=== PATIENT | female | born 1970 | race Hispanic/Latino ===

== ENCOUNTER 2017-03-21 08:18 | Outpatient (CLI) | payer OTHER | END 2017-03-21 08:19 | disposition home or self-care (01) | LOC: BICULT 08:18 | PROVIDERS: ATTEND Family Medicine | DX: N28.1 Cyst of kidney, acquired (principal) | CPT/HCPCS: 76770 ==

== ENCOUNTER 2018-05-29 11:58 | Outpatient (CLI) | payer OTHER ==
--- NOTE | 2018-05-29 13:10 | ULT ---
RENAL ULTRASOUND: HISTORY: Renal cyst. COMPARISON: A 03/21/2017 exam. FINDINGS: Real-time imaging of the right and left kidneys was performed. The right kidney measures 11.7 and th e left kidney 11.3 cm in size. There is a 1.6 x 2 cm upper pole right renal cyst. There is a slight ly smaller 1.6 cm mid pole left renal cyst. Some of these films have been inadvertently labeled as r ight, but I discussed with the technologist and label left will be changed. No obstruction. The chelsie dder region appears unremarkable. No significant postvoid residual. IMPRESSION: Stable bilateral renal cysts. POS: [facility]
== END 2018-05-29 11:59 | disposition home or self-care (01) ==
LOC: BICULT 11:58
PROVIDERS: ATTEND Family Medicine
DX: N28.1 Cyst of kidney, acquired (principal)
CPT/HCPCS: 76770

== ENCOUNTER 2021-09-28 14:51 | Outpatient (CLI) | payer OTHER | END 2021-09-28 14:52 | disposition home or self-care (01) | LOC: BICULT 14:51 | PROVIDERS: ATTEND Family Medicine | DX: N28.1 Cyst of kidney, acquired (principal) | CPT/HCPCS: 76770 ==